=== PATIENT | male | born 1930 | race Caucasian/White ===

== ENCOUNTER 2016-06-14 11:35 | Outpatient (CLI) | payer MEDICARE ==
[2016-06-14] MEDS ORDERED: LASIX ONE (12:00)
[2016-06-14] MEDS ORDERED: LASIX IV ONE (13:00)
--- NOTE | 2016-06-14 15:23 | Cat Scan Report ---
CT ABDOMEN AND PELVIS WITHOUT CONTRAST: INDICATION: Hydronephrosis. COMPARISON: None similar. FINDINGS: Noncontrast abdomen and pelvis CT performed. LUNG BASES: Slight increased AP chest diameter. Nonspecific distal esophageal wall thickening, not excluded for gastroesophageal reflux and/or hiatal hernia, amongst others. ABDOMEN: Please note that sensitivity to detect small visceral lesions is limited due to the absence of intravenous or oral contrast. Hydronephrotic right renal shell noted with lower pole calcifications measuring up to 1.9 x 0.9 cm, axial image 143, series 2 and few surgical clips medially along the right psoas as on axial image 124 as well. Few other surgical clips posterior to the right hepatic lobe also noted. Nonhydronephrotic left kidney with few calcifications inferiorly, some extrarenal/perinephric while few others appear cortical as on axial image 159, series 2 while yet few others represent nonobstructing calculi as measuring up to 7 mm, axial image 157. Otherwise, grossly unremarkable unenhanced liver, spleen, gallbladder, pancreas, adrenals, nonaneurysmal abdominal aorta with few atherosclerotic calcifications and IVC. Nonopacified GI tract evaluation limited, though grossly nonobstructive. Ascending and transverse colon stool/possible constipation. Ascending colon diverticuli. Few small, subcentimeter mesenteric and retroperitoneal lymph nodes. No ascites or size significant adenopathy. Tiny fat-containing umbilical hernia with a transverse neck of 4 mm. PELVIS: Sigmoid diverticulosis without acute inflammation. Mildly enlarged prostate creates an impression at the bladder base and may be correlated for clinically and with PSA. Few small prostatic calcifications. Otherwise, grossly unremarkable unenhanced urinary bladder and the rectum. No free fluid or significant adenopathy. Mild degenerative changes along the imaged spine. CONCLUSION: 1. Chronic hydronephrotic right renal shell with few calcifications and postsurgical changes noted, as described. Please correlate with accurate surgical details. 2. Left lower renal calcifications, including nonobstructing nephrolithiasis. 3. Various other incidental findings, including diverticulosis and an enlarged prostate, amongst others, as above. Thank you for the opportunity to participate in this patient's care.
--- NOTE | 2016-06-19 10:13 | Nuclear Medicine Report ---
NUCLEAR MEDICINE RENAL SCAN CAPTOPRIL/LASIX: HISTORY: Renal obstruction, right hydronephrosis, evaluate kidney function. TECHNIQUE: Posterior flow and posterior function imaging was obtained following 5 mCi of technetium 99m MAG3. Renogram curves were constructed. COMPARISON: CT abdomen and pelvis with contrast performed the same day. FINDINGS: The posterior flow and posterior function images demonstrate little, if any, activity within the right kidney. CT demonstrates a severely atrophic right kidney with severe diffuse cortical thinning and possible chronic obstruction at the UPJ. The posterior flow and function images demonstrate normal uptake and excretion of the radiotracer in the left kidney. [id number] activity in the left kidney is less than 3 minutes. There is a normal excretory curve on the left. Split function measures 96% left kidney and 4% right kidney. IMPRESSION: Essentially nonfunctioning right kidney with severe cortical thinning on CT. The left kidney has normal function. Split function measures 96% left kidney and 4% right kidney.
== END 2016-06-14 11:36 | disposition home or self-care (01) ==
LOC: NM 11:35
PROVIDERS: ATTEND Urology
DX: N20.0 Calculus of kidney (principal); K21.9 Gastro-esophageal reflux disease without esophagitis; K44.9 Diaphragmatic hernia without obstruction or gangrene; N28.89 Other specified disorders of kidney and ureter; I70.0 Atherosclerosis of aorta; K42.9 Umbilical hernia without obstruction or gangrene; K57.30 Diverticulosis of large intestine without perforation or abscess without bleeding; N40.0 Benign prostatic hyperplasia without lower urinary tract symptoms; M47.899 Other spondylosis, site unspecified; N42.89 Other specified disorders of prostate
CPT/HCPCS: 74176; 78708; A9562; J1940